=== PATIENT | female | born 1975 | race Caucasian/White ===

== ENCOUNTER 2020-12-19 16:54 | Emergency (ER) | payer SELFPAY ==
[2020-12-19] MEDS ORDERED: CYCLOBENZAPRINE10 MG PO (20:15)
[2020-12-19] MEDS ORDERED: TRAMADOL HCL50 MG PO (20:15)
== END 2020-12-19 20:31 | disposition home or self-care (01) ==
LOC: FER 16:54
DX: S13.4XXA Sprain of ligaments of cervical spine, initial encounter (principal); S00.31XA Abrasion of nose, initial encounter; F17.210 Nicotine dependence, cigarettes, uncomplicated; Y04.2XXA Assault by strike against or bumped into by another person, initial encounter; Y92.009 Unspecified place in unspecified non-institutional (private) residence as the place of occurrence of the external cause; Y07.01 Husband, perpetrator of maltreatment and neglect
CPT/HCPCS: 70450; 70486; 72125; 72128; 72131; J1170; J2405